=== PATIENT | male | born 1955 | race Caucasian/White ===

== ENCOUNTER → 2017-06-10 10:08 | Outpatient (CLI) | payer OTHER ==
[~2017-06-10 10:08] MED LIST: HYDROCODONE-APA1 TAB PO; LIPITOR10 MG PO; PRINIVIL20 MG PO; PROTONIX40 MG PO; VALIUM5 MG PO; ZANAFLEX4 MG PO
[2017-07-10 13:53] VITALS: BMI 18.3
== END | disposition home or self-care (01) ==
LOC: D.RAD 09:30 → D.US 10:08 → D.RAD 11:00
DX: R11.2 Nausea with vomiting, unspecified (principal); R10.13 Epigastric pain; R14.0 Abdominal distension (gaseous); K22.9 Disease of esophagus, unspecified

== ENCOUNTER 2017-07-10 12:42 | Day surgery (SDC) | payer OTHER ==
[~2017-07-10] VITALS: Ht 182.9 cm; Wt 61.4 kg
--- NOTE | ~2017-07-10 | OP ---
PATIENT NAME: LISA LARA MEDICAL RECORD: [id number] :57 LOCATION:D.OPS ADMISSION DATE: SURGEON: BERTRAND GASPAR DO DATE OF OPERATION: 07/10/2017 PROCEDURE: EGD with PEG placement. INDICATIONS FOR PROCEDURE: Dysphagia secondary to probable achalasia. SCOPE: Olympus video gastroscope. MEDICATIONS: Propofol 380mg IV per anesthesia and Ancef 1 gram IV prior to skin incision for PEG placement. ESTIMATED BLOOD LOSS: Minimal. COMPLICATIONS: None. FINDINGS: Informed consent was given. The patient was made comfortable with the above medication. After reaching an adequate level of sedation by slow IV push, the patient was placed on his back. The endoscope was advanced under direct visualization through the mouth down to the second portion of the duodenum to confirm patency. This was an abbreviated examination for PEG placement only. The room was darkened and transillumination was visualized in the mid left abdomen. Finger indentation confirmed appropriate locations of the site was marked and the skin was prepped. Lidocaine was used to anesthetize the area and a small skin incision was made with a scalpel blade. The trocar with the needle was placed through the site where the incision was made and indentation was visualized on the insufflated stomach. The needle punctured the stomach and was directly visualized. The connecting fiber was grasped with a snare and brought out through the mouth. The PEG tube was then secured to the connecting fiber and pulled through the stomach into appropriate position. The endoscope was used to go back down into the stomach and confirmed appropriate positioning of the bumper on the inside of the stomach. The tube was then secured appropriately and the endoscope was withdrawn from the patient. The patient tolerated the procedure well and there were no complications intraoperatively. IMPRESSION: EGD with successful PEG placement. PLAN AND RECOMMENDATIONS: 1. Discharge home when recovery parameters are met. 2. Home health will follow up with the patient as an outpatient tomorrow to begin tube feedings if there are no complications over the next 24 hours. 3. The patient should continue follow up with [facility] for continued workup and treatment of his achalasia. TRANSINT:[id number] Voice Confirmation ID: [id number] DOCUMENT ID: [id number] OPERATIVE REPORT [id number] LISA LARA BERTRAND GASPAR DO CC: [id number] DICTATION DATE: 07/10/171657 GLOVE PRINTER: 07/10/17 1740 REG [facility] [address] [id number]
[2017-07-10 13:44] LABS: BASOPHILS 0.1 % (0-2); EOSINOPHILS 0.8 % (0-7); HEMATOCRIT 40.4 % (42.0-54.0); IMMATURE GRANULOCYTES 0.1 % (0-5); LYMPHOCYTES 31.1 % (15-50); MCH 31.7 pg (26.0-34.0); MCHC 34.7 g/dL (31.0-37.0); MCV 91.6 fL (80.0-100.0); MEAN PLATELET VOLUME 9.2 fL (7.4-10.4); NEUTROPHILS 61.9 % (40-80); PLATELET COUNT 322 10x3/uL (130-400); RBC 4.41 10x6/uL (4.20-6.10); RDW 14.1 % (11.5-14.5); WBC 9.7 10x3/uL (4.8-10.8)
[2017-07-10 13:51] LABS: CALC OSMOLALITY 279 mosm/kg (275-300); CALCIUM 9.1 mg/dL (8.5-10.1); CARBON DIOXIDE 28.2 mmol/L (21.0-32.0); CHLORIDE - SERUM 104 mmol/L (98-107); CREATININE - SERUM 0.7 mg/dL (0.6-1.3); GLUCOSE 88 mg/dL (74-106); POTASSIUM - SERUM 4.1 mmol/L (3.5-5.1); SODIUM 141 mmol/L (136-145); UREA NITROGEN 13 mg/dL (7-18); eGFR NON AFRICAN AMERICAN > 90 mL/min (90-120)
[2017-07-10 13:53] VITALS: BP 139/74; Ht 182.9 cm; Wt 61.4 kg
[2017-07-10] MEDS ORDERED: LIPITOR10 MG PO (14:15)
[2017-07-10] MEDS ORDERED: VALIUM5 MG PO (14:18)
[2017-07-10] MEDS ORDERED: HYDROCODONE-APA1 TAB PO (14:19)
[2017-07-10] MEDS ORDERED: PRINIVIL20 MG PO (14:19)
[2017-07-10] MEDS ORDERED: PROTONIX40 MG PO (14:20)
[2017-07-10] MEDS ORDERED: ZANAFLEX4 MG PO (14:21)
== END 2017-07-10 17:40 | disposition home or self-care (01) ==
LOC: D.OPS 12:42
PROVIDERS: Anesthesiology
DX: R13.10 Dysphagia, unspecified (principal); Z01.812 Encounter for preprocedural laboratory examination

== ENCOUNTER 2018-01-09 09:23 | Emergency (ER) | payer OTHER ==
[~2018-01-09] VITALS: Ht 182.9 cm; Wt 70.5 kg
[2018-01-09 09:26] VITALS: Ht 182.9 cm; Wt 70.5 kg
[2018-01-09] MEDS ORDERED: NORCO 7.5/325 T1 TA1 PO (10:15)
[2018-01-09 10:22] VITALS: BP 136/88
== END 2018-01-09 10:23 | disposition home or self-care (01) ==
LOC: D.ER 09:23
DX: K40.90 Unilateral inguinal hernia, without obstruction or gangrene, not specified as recurrent (principal); I10 Essential (primary) hypertension; M35.00 Sjogren syndrome, unspecified; F17.200 Nicotine dependence, unspecified, uncomplicated

== ENCOUNTER 2018-01-15 11:02 | Day surgery (SDC) | payer OTHER ==
[2018-01-14 15:49] LABS: BASOPHILS 0.1 % (0-2); CALC OSMOLALITY 278 mosm/kg (275-300); CALCIUM 8.9 mg/dL (8.5-10.1); CARBON DIOXIDE 26.8 mmol/L (21.0-32.0); CHLORIDE - SERUM 105 mmol/L (98-107); CREATININE - SERUM 0.8 mg/dL (0.6-1.3); EOSINOPHILS 0.4 % (0-7); GLUCOSE 84 mg/dL (74-106); HEMATOCRIT 43.2 % (42.0-54.0); HEMOGLOBIN 14.8 g/dL (13.5-17.5); IMMATURE GRANULOCYTES 0.3 % (0-5); LYMPHOCYTES 25.2 % (15-50); MCH 30.8 pg (26.0-34.0); MCHC 34.3 g/dL (31.0-37.0); MEAN PLATELET VOLUME 9.2 fL (7.4-10.4); MONOCYTES 4.2 % (2-11); NEUTROPHILS 69.8 % (40-80); PLATELET COUNT 288 10x3/uL (130-400); POTASSIUM - SERUM 3.8 mmol/L (3.5-5.1); RDW 14.4 % (11.5-14.5); SODIUM 140 mmol/L (136-145); UREA NITROGEN 14 mg/dL (7-18); WBC 14.6 10x3/uL (4.8-10.8); eGFR NON AFRICAN AMERICAN > 90 mL/min (90-120)
[~2018-01-15] VITALS: Ht 180.3 cm; Wt 70.3 kg
--- NOTE | ~2018-01-15 | OP ---
PATIENT NAME: LISA LARA MEDICAL RECORD: [id number] :57 LOCATION:D.OPS ADMISSION DATE: SURGEON: KAYDEN DUMONT MD DATE OF OPERATION: 01/15/2018 PREOPERATIVE DIAGNOSES: 1. Recurrent right inguinal hernia. 2. Hypertension. 3. Hypercholesterolemia. 4. Arthritis. 5. History of achalasia. POSTOPERATIVE DIAGNOSES: 1. Recurrent right inguinal hernia. 2. Hypertension. 3. Hypercholesterolemia. 4. Arthritis. 5. History of achalasia. PROCEDURE: Recurrent right inguinal hernia repair with medium PHS mesh. SURGEON: Kayden Dumont MD REPORT OF PROCEDURE: The patient's right groin was prepped and draped in sterile fashion. The old skin incision was reopened and electrocautery was used to dissect through the subcutaneous tissues down to the external oblique fascia. This fascia was opened up to the external ring using electrocautery. The spermatic cord was elevated and a Marichuy was placed around it. The patient had a moderate-sized indirect hernia sac, which was dissected from the spermatic cord and pushed back into the abdominal cavity. The patient also had laxity of the inguinal floor, consistent with beginnings of a direct hernia defect. The patient's ilioinguinal nerve was found and high ligated. We opened up the preperitoneal space of Retzius and inserted a large PHS mesh, which had been cut down on his posterior aspect to be more like a medium PHS mesh. This was sutured into place with multiple #0 Vicryls. This appeared to rest in good position. The wound was then irrigated out thoroughly with normal saline and care was taken to assure there was no sign of any active bleeding. The external oblique fascia was then closed with running 2-0 Vicryl, Bryon's was closed with interrupted 3-0 Vicryl, and the skin was closed with running subcutaneous 5-0 Monocryl. A total of 10 mL of 0.25% Marcaine with epinephrine was infused into the surrounding tissues and the wound was dressed appropriately. COMPLICATIONS: None. CONDITION: Stable. ANESTHESIA: General endotracheal and local. BLOOD LOSS: Minimal. TRANSINT:[id number] Voice Confirmation ID: [id number] DOCUMENT ID: [id number] OPERATIVE REPORT [id number] JANELISA Smith KAYDEN DUMONT MD CC: KELSEA OLIVEIRA MD [id number] DICTATION DATE: 01/15/18 172 EMERGENCY SPECIALIST: 01/15/18 193 REG [facility] [address] [id number]
[~2018-01-15 11:02] MED LIST changes: +NORCO 7.5/325 T1 TA1 PO
[2018-01-15 12:16] VITALS: BP 137/78; Ht 180.3 cm; Wt 70.3 kg
[2018-01-15] MEDS ORDERED: NORCO 10-325 TA1 TAB PO (17:23)
== END 2018-01-15 19:35 | disposition home or self-care (01) ==
LOC: D.OPS 11:02 → D.PAN 13:15 → D.OPS 13:15
PROVIDERS: Surgery
DX: K40.91 Unilateral inguinal hernia, without obstruction or gangrene, recurrent (principal); I10 Essential (primary) hypertension; E78.00 Pure hypercholesterolemia, unspecified; M19.90 Unspecified osteoarthritis, unspecified site; K22.0 Achalasia of cardia; Z01.812 Encounter for preprocedural laboratory examination

== ENCOUNTER 2019-09-01 07:25 | Day surgery (SDC) | payer BC ==
--- NOTE | 2019-08-31 12:44 | NUR ---
HAMILTON NOTE: T98.7 P54 R20 [id number]% BP 177/94
[~2019-09-01] VITALS: Ht 182.9 cm; Wt 68.9 kg
--- NOTE | ~2019-09-01 | OP ---
PATIENT NAME: LISA LARA MEDICAL RECORD: [id number] :57 LOCATION:[facility] ADMISSION DATE: SURGEON: CARLOS ROLON MD DATE OF OPERATION: 09/01/2019 SURGEON: Carlos Rolon MD PREOPERATIVE DIAGNOSIS: Lumbar spinal stenosis with foraminal stenosis at L4-L5 right and L4-L5 left. PROCEDURE: Lumbar laminectomy, medial facetectomy and foraminotomy L4-L5 on the right with sublaminar decompression at L4-L5 on the left with METRx retractor. DESCRIPTION AND TECHNIQUE: After induction of general endotracheal anesthesia, the patient was rolled prone on a Pelon frame. Lumbar spine was prepped and draped in usual sterile fashion. Fluoroscopic x-ray and spinal needle localized L4-L5 interspace on the right side. After infiltration with 1:100,000 epinephrine with 1% lidocaine, a stab incision was created with a #11 blade and series of dilators were used to advance a METRx retractor to the L4-L5 interspace on the right side. Levels confirmed with fluoroscopic x-ray. A microscope and Midas Armaan drill were used to perform a laminectomy, medial facetectomy, and foraminotomy at L4-L5 on the right. Hypertrophied ligamentum flavum was removed with carotid rongeurs. Next, the spinous process of L4 was undermined with a Midas-Armaan drill. Hypertrophied ligamentum flavum was removed with Cloward rongeurs in the central canal as well as on the left side with Cloward rongeurs under microscopic illumination. Following this, the foraminotomy was carried out at L4-L5 on the left with METRx retractor and the microscope. The L4 and L5 nerve roots were decompressed on both sides. Meticulous hemostasis was maintained throughout the wound. Wound was irrigated with copious amounts of Ancef irrigant solution. Retractors removed. The fascia was closed with 2-0 Vicryl suture. Subdermal layer was closed with 3-0 Vicryl suture. Skin was closed with angela. A sterile dressing was applied to the wound. The patient was awakened in good condition and taken to recovery. All counts were reported as correct. Estimated blood loss was minimal. TRANSINT:[id number] Voice Confirmation ID: [id number] DOCUMENT ID: [id number] CARLOS ROLON MD CC: [id number] DICTATION DATE: 09/08/19 1818 RN CLINICAL: 09/09/19 0213 [facility] [place] 09/01/[address] [id number] [place] [id number]
[~2019-09-01 07:25] MED LIST changes: +MOBIC7.5 MG PO; +NORCO 10-325 TA1 TAB PO; +PROZAC20 MG PO
[2019-09-01 08:00] VITALS: BP 163/94; Ht 182.9 cm; Wt 68.9 kg
[2019-09-01 08:38] LABS: HEMATOCRIT 45.2 % (42.0-54.0); MCH 30.4 pg (26.0-34.0); MCHC 33.2 g/dL (31.0-37.0); MCV 91.7 fL (80.0-100.0); MEAN PLATELET VOLUME 8.5 fL (7.4-10.4); RBC 4.93 10x6/uL (4.20-6.10); RDW 15.8 % (11.5-14.5); WBC 9.1 10x3/uL (4.8-10.8)
[2019-09-01] MEDS ORDERED: HYDROCODON-ACE1 EA10 PO (10:12)
[2019-09-01] MEDS ORDERED: MEDROL DOSE PACK4 MG PO (10:12)
--- NOTE | 2019-09-01 11:04 | NUR ---
AFTER POSITIONING PRONE ON BACK FRAME GENITALS CHECKED NO IMPINGEMENTS, MILLY.
== END 2019-09-01 13:05 | disposition home or self-care (01) ==
LOC: D.OPS 07:25 → D.PAN 09-02 07:30 → D.OPS 09-02 09:00 → D.PAN 09-02 09:25
PROVIDERS: Anesthesiology; ATTEND Neurological Surgery
DX: M48.061 Spinal stenosis, lumbar region without neurogenic claudication (principal); E78.5 Hyperlipidemia, unspecified; I10 Essential (primary) hypertension; K21.9 Gastro-esophageal reflux disease without esophagitis; M54.16 Radiculopathy, lumbar region